=== PATIENT | male | born 1940 | race Caucasian/White ===

== ENCOUNTER 2016-11-19 08:29 | Emergency (ER) | payer MEDICARE, BC ==
--- NOTE | 2016-11-19 08:41 | ERNOTE ---
Lower Extremity HPI - General Source: patient Exam Limitations: no limitations - Immun/Allergies/Home Medications Immunizations: IMMUNIZATION HX Immunizations Up to Date No History of Influenza Vaccine No Hx Pneumococcal Vaccination No Allergies/Adverse Reactions: Allergies Allergy/AdvReac Type Severity Reaction Status Date / Time No Known Allergies Allergy Verified 11/19/16 08:35 Home Medications: HOME MEDICATIONS Ibuprofen [Motrin] 600 mg PO Q6H PRN 12/24/13 [Last Taken Unknown] Multivitamin [Multi Vitamin Daily] 1 each PO DAILY 12/24/13 [Last Taken Unknown] Tadalafil [Cialis] 10 mg PO DAILY PRN 12/24/13 [Last Taken Unknown] Cholecalciferol [Vitamin D] 1,000 unit PO DAILY 04/09/16 [Last Taken Unknown] Cyanocobalamin [Vitamin B-12] 1,000 mcg PO DAILY 04/09/16 [Last Taken Unknown] Atorvastatin Calcium [Lipitor] 20 mg PO HS 11/19/16 [Last Taken Unknown] Ibuprofen [Motrin] 800 mg PO TID PRN #30 tablet 11/19/16 [Last Taken Unknown] - History of Present Illness Narrative: This is a 76-year-old male who dropped a heavy object onto his left big toe last night. He did not seek medical attention at that time however the pain has gotten worse in his left foot and he now complains of pain and presents to the ER. This happened and at his home. He is retired Review of Systems - Review of Systems Constitutional: Present: no symptoms reported EYE: Present: no symptoms reported ENT: Present: no symptoms reported Respiratory: Present: no symptoms reported Cardiology: Present: no symptoms reported Gastrointestinal/Abdominal: Present: no symptoms reported Genitourinary: Present: no symptoms reported Musculoskeletal: Present: See HPI Skin: Present: no symptoms reported Neurological: Present: no symptoms reported - Patient's Past Medical History Patient History - Medical: Other Patient History - Cardiac/Respiratory: Aneurysm, Hypertension, Hyperlipidemia, Other Patient History - Cancer: Skin, Surgical Treatment Patient History - Surgical Procedures: Cataracts, Colonoscopy, Other Patient History - Other: None - Family History Mother Family History - Medical: Dementia Family History - Cardiac/Respiratory: No pertinent hx Father Family History - Medical: , Other Family History - Cardiac/Respiratory: No pertinent hx Sister Family History - Medical: Hypothyroidism Family History - Cardiac/Respiratory: No pertinent hx - Social History Living Situations: home Abuse History: No History of abuse Psych History: No pertinent hx Alcohol Use: none Drug Use: none - Immunizations Immunizations Up to Date: No Hx Pneumococcal Vaccination: No History of Influenza Vaccine: No Physical Exam - Physical Exam General Appearance: Present: wd/wn, alert, no apparent distress Ears, Nose, Throat: Present: normal ENT inspection, normal pharynx Neck: Present: normal inspection Respiratory: Present: no respiratory distress Cardiovascular/Chest: Present: regular rate, rhythm, normal peripheral pulses ED Progress - Vital Signs Patient's Vital Signs:: I have reviewed the patient's vital signs. Vital Signs: Vital Signs 11/19/16 08:31 Temperature 36.1 C L Pulse Rate 65 Respiratory 12 Rate Blood Pressure 145/68 O2 Sat by Pulse 97 Oximetry - X-Ray X-Ray #1 X-Ray: foot - Progress/Reassessment Chief Complaint: Lower Extremity Pain/ Injury Plan - Plan Plan: No obvious fracture was noted on x-ray we will treat this patient for contusion of the foot Departure Clinical Impression: Foot contusion Qualifiers: Encounter type: initial encounter Laterality: left Qualified Code(s): S90.32XA - Contusion of left foot, initial encounter - Departure Disposition: Home self-care Condition: Good Instructions: Contusion, [id number] Referrals: Swapnil Crooks DO [Primary Care Provider] - Prescriptions: Ibuprofen [Motrin] 800 mg PO TID PRN #30 tablet PRN Reason: Pain
[2016-11-19 09:40] VITALS: BP 142/80
== END 2016-11-19 09:47 | disposition home or self-care (01) ==
LOC: ER 08:29
DX: S90.32XA Contusion of left foot, initial encounter (principal); X58.XXXA Exposure to other specified factors, initial encounter; Y93.9 Activity, unspecified; Y92.9 Unspecified place or not applicable; I10 Essential (primary) hypertension; E78.5 Hyperlipidemia, unspecified; Z85.828 Personal history of other malignant neoplasm of skin